=== PATIENT | male | born 1970 | race Caucasian/White ===

== ENCOUNTER 2017-04-23 14:24 | Emergency (ER) | payer OTHER ==
[2017-04-23 14:34] VITALS: RESP 18; TEMP 98
[2017-04-23] MEDS ORDERED: TDAP ADULT 0.5 ML INJ (BOOSTRIX) IM ONE (14:35)
--- NOTE | 2017-04-23 15:58 | EDPHY ---
H & P Time Seen by Provider: 04/23/17 15:08 HPI/ROS: 47-year-old male crush left little finger while working on a leg press , this happened at about 10:00 a.m. today. Review of systems As per HPI General no fever no chills no weakness HEENT no eye pain no eye discharge. No eye redness, no sore throat Respiratory no cough, no shortness of breath Cardiac no chest pain, no peripheral edema GI no abdominal pain, no diarrhea, no constipation, no nausea, no vomiting no flank pain, no hematuria, no dysuria Musculoskeletal positive myalgias, positive joint pain Heme no easy bruising, no easy bleeding Endo no polyuria, no polydipsia Skin no rashes, no pruritus Neuro no syncope, no dizziness, no headaches Psych is no suicidal ideation, no homicidal ideation Past Medical/Surgical History: noncontributory Social History: drinks socially, denies drug use Smoking Status: Never smoked Physical Exam: 47-year-old male alert and oriented no acute distress nontoxic appearance Alert and oriented in no acute distress nontoxic appearance, afebrile Atraumatic normocephalic Neck no JVD Lungs clear to auscultation, no respiratory distress Heart regular rate and rhythm Extremities no cyanosis clubbing edema left hand left little finger crush injury to little finger distal phalanx with 1 cm laceration on distal pulp subungual hematoma full range of motion, neurovascularly intact Constitutional: Initial Vital Signs Temperature (C) 36.6 C 04/23/17 14:32 Heart Rate 66 04/23/17 14:32 Respiratory Rate 18 04/23/17 14:32 Blood Pressure 129/67 H 04/23/17 14:32 O2 Sat (%) 97 04/23/17 14:32 O2 Delivery Mode Room Air Allergies/Adverse Reactions: No Known Allergies Allergy (Unverified 04/23/17 14:31) Home Medications: Medication Instructions Recorded Cephalexin 500 mg PO QID #28 tablet 04/23/17 Medical Decision Making - Diagnostics Imaging Results: Imaging Impressions Finger X-Ray 04/23/17 14:32 Impression: Small tuft chip. Procedures: Procedure note-laceration The wound was irrigated with copious amounts of saline. Lidocaine 1% Combined with bupivacaine 0.25%was used for digital block anesthetic. 6 simple interrupted sutures were placed. 4-0 Ethilon was used. Patient tolerated procedure well. nail trephination cautery used to trephinate midline nail bed introduced just through nail ED Course/Re-evaluation: patient seen and evaluated for injury to left little finger. Impression left distal tuft fracture, of little finger left distal finger laceration, of little finger left subungual hematoma of little finger plan sutured repair trephination of left little finger subungual dressing, splint for protection Keflex, prophylactic for laceration overlying distal tuft fx - Data Points Medications Given: Discontinued Medications Diphtheria/Tetanus/Acell Pertussis (Boostrix) 0.5 ml IM .ONCE ONE Stop: 04/23/17 14:36 Last Admin: 04/23/17 14:41 Dose: 0.5 ml Departure - Departure Disposition: Home, Routine, Self-Care Clinical Impression: Laceration of left little finger, Phalanx, distal fracture of finger Condition: Good Instructions: Finger Fracture (ED), Finger Laceration (ED) Additional Instructions: Return in 10-12 days for suture removal, you have 6 sutures Referrals: NONE *PRIMARY CARE P,. [Primary Care Provider] - As per Instructions Prescriptions: Cephalexin 500 mg PO QID #28 tablet
[2017-04-23 16:05] VITALS: BP 124/66; PULSE 78; O2SAT 96
== END 2017-04-23 16:04 | disposition home or self-care (01) ==
LOC: CED 14:24
PROC: 0H9QXZZ Drainage of Finger Nail, External Approach (ICD-10-PCS; principal; 2017-04-23)
PROC: 0HQGXZZ Repair Left Hand Skin, External Approach (ICD-10-PCS; principal; 2017-04-23)
PROC: 3E0234Z Introduction of Serum, Toxoid and Vaccine into Muscle, Percutaneous Approach (ICD-10-PCS; principal; 2017-04-23)
DX: S62.637A Displaced fracture of distal phalanx of left little finger, initial encounter for closed fracture (principal); S61.217A Laceration without foreign body of left little finger without damage to nail, initial encounter; Z23 Encounter for immunization; W23.1XXA Caught, crushed, jammed, or pinched between stationary objects, initial encounter; Y92.69 Other specified industrial and construction area as the place of occurrence of the external cause; Y99.0 Civilian activity done for income or pay; Y93.89 Activity, other specified
CPT/HCPCS: 73140-PO

== ENCOUNTER 2017-05-03 14:43 | Emergency (ER) | payer OTHER ==
[2017-05-03 14:47] VITALS: BP 121/78; PULSE 60; RESP 16; TEMP 97.9; O2SAT 97
--- NOTE | 2017-05-03 14:58 | EDPHY ---
H & P Stated Complaint: W/C suture removal R 5th finger. Sutures placed 04/23/17.Denies s/s infection HPI/ROS: HPI CHIEF COMPLAINT: Here for suture removal HISTORY OF PRESENT ILLNESS: Patient very pleasant 47-year-old male denies any significant medical history, presents emergency room requesting his sutures be removed from his 5th digit right hand. He is left-hand dominant. 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 He initially injured it 10 days ago while smashing his finger sustaining a laceration. He denies any pain, swelling, redness, drainage, pus. 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 Exam Constitutional triage nursing summary reviewed, vital signs reviewed, awake/ alert. Eyes normal conjunctivae and sclera, EOMI, PERRLA. HENT normal inspection, atraumatic, moist mucus membranes, no epistaxis, neck supple/ no meningismus, no raccoon eyes. Respiratory clear to auscultation bilaterally, normal breath sounds, no respiratory distress, no wheezing. Cardiovascular rate normal, regular rhythm, no murmur, no edema, distal pulses normal. Gastrointestinal soft, non-tender, no rebound, no guarding, normal bowel sounds, no distension, no pulsatile mass. Genitourinary no CVA tenderness. Musculoskeletal right hand: 5th digit: Distal aspect there are sutures in place the wound clean, dry, well approximated, no signs of infection specifically no redness, drainage or pus. No tenderness, no significant swelling no midline vertebral tenderness, full range of motion, no calf swelling , no tenderness of extremities, no meningismus, good pulses, neurovascularly intact. Skin pink, warm, & dry, no rash, skin atraumatic. Neurologic awake, alert and oriented x 3, AAOx3, moves all 4 extremities equally, motor intact, sensory intact, CN II-XII intact, normal cerebellar, normal vision, normal speech. Psychiatric normal mood/affect. Heme/Lymph/Immune no lymphadenopathy. Differential Diagnosis: Wound check, suture removal Medical Decision Making: Plan for this patient removed his sutures as wound is well approximated healing. No signs infection. I encouraged him to watch closely for signs of infection further redness, swelling, pus, drainage. He understands but Source: Patient - Personal History Current Tetanus Diphtheria and Acellular Pertussis (TDAP): Yes Tetanus Vaccine Date: 2016 - Medical/Surgical History Hx Asthma: No Hx Chronic Respiratory Disease: No Hx Diabetes: No Hx Cardiac Disease: No Hx Renal Disease: No Hx Cirrhosis: No Hx Alcoholism: No Hx HIV/AIDS: No Hx Splenectomy or Spleen Trauma: No Other PMH: denies - Social History Smoking Status: Never smoked Constitutional: Initial Vital Signs Temperature (C) 36.6 C 05/03/17 14:44 Heart Rate 60 05/03/17 14:44 Respiratory Rate 16 05/03/17 14:44 Blood Pressure 121/78 H 05/03/17 14:44 O2 Sat (%) 97 05/03/17 14:44 O2 Delivery Mode Room Air Allergies/Adverse Reactions: No Known Allergies Allergy (Verified 05/03/17 14:47) Home Medications: Medication Instructions Recorded NK [No Known Home Meds] 05/03/17 Departure - Departure Disposition: Home, Routine, Self-Care Clinical Impression: Visit for suture removal Condition: Good Instructions: Stitches Removal (ED) Additional Instructions: 1. Continue to watch for infection. Referrals: NONE *PRIMARY CARE P,. [Primary Care Provider] - As per Instructions
== END 2017-05-03 15:25 | disposition home or self-care (01) ==
LOC: CED 14:43
DX: Z48.02 Encounter for removal of sutures (principal)
CPT/HCPCS: G0463